=== PATIENT | female | born 1965 | race Caucasian/White ===

== ENCOUNTER 2016-11-11 17:56 | Emergency (ER) | payer OTHER ==
[~2016-11-11 17:56] MED LIST: AMBIEN DPS5 MG PO; ASA CHILDREN'S81 MG PO; BENICAR20 MG PO; CATAPRES-DPS0.1 MG PO; CELLCEPT500 MG PO; DELTASONE DPS10 MG PO; EFFEXOR XR37.5 M1 PO; LOPRESSOR DPS100 MG PO; NORVASC DPS10 MG PO; PLAVIX75 MG PO; PROGRAF1 MG PO; THERAPEUTIC MUL1 TAB PO; VIBRAMYCIN-DPS100 M2 PO; VITAMIN D-32000 UNI1 PO; VITAMIN E200 UNI2 PO
--- NOTE | 2016-11-15 10:17 | ER ---
ADMIT: 11/11/2016 RM/LOC: ER [facility] MR#: [id number] [place], [place] [id number] JUANITA HENDERSON [address] [place] [address] Emergency Room Report SEX: F AGE: 51 : 1965 DATE: 11/11/2016 ADDENDUM: CHIEF COMPLAINT: Abdominal pain. HISTORY OF PRESENT ILLNESS: This is a 51-year-old female, who has a history of pancreatic and kidney transplant. Her pain started at 4:00 p.m. this afternoon. She took some Tylenol, did not get any better, so she came to the ER. She also complained of some urinary frequency, some back pain, and a headache. COURSE IN THE EMERGENCY ROOM: CBC and CMP and urine were collected. CBC is normal with a white count of 7.5, hemoglobin of 12.0. Chemistries are normal except for BUN of 31, creatinine of 1.2, which she said is stable for her. Her GFR is 52. Urine was normal. PAST MEDICAL HISTORY: For the patient, she has hypertension, headaches, appendectomy, cardiac disease, cholecystectomy, pancreas, and kidney transplant. MEDICATIONS: Please see nurse's note. She is on Plavix. ALLERGIES: PLEASE SEE NURSE'S NOTE. SOCIAL HISTORY: Denies any tobacco, drug, or alcohol use. FAMILY HISTORY: Noncontributory. LABORATORY DATA: Again, labs as stated above. The patient is going to be discharged home having her push fluids, do a bland diet, and follow up with primary care physician if worsens. CLINICAL IMPRESSION: Abdominal pain. VARSHA Stratton / Alvaro Garzon MD / verónica JOB #: [id number] CC: Jigar Mccord MD, Attending Physician Steven Saxena MD, Family Physician
== END 2016-11-11 20:30 | disposition home or self-care (01) ==
LOC: ER 17:56
DX: R10.9 Unspecified abdominal pain (principal); G89.29 Other chronic pain; I10 Essential (primary) hypertension; Z79.01 Long term (current) use of anticoagulants; Z88.5 Allergy status to narcotic agent; Z88.8 Allergy status to other drugs, medicaments and biological substances

== ENCOUNTER → 2016-12-07 | Outpatient (CLI) | payer OTHER | END | disposition home or self-care (01) | LOC: PTH.S 12:44 | DX: Z01.818 Encounter for other preprocedural examination (principal); I73.9 Peripheral vascular disease, unspecified ==